=== PATIENT | male | born 1945 | race Caucasian/White ===

== ENCOUNTER 2016-12-22 08:22 | Inpatient (IN) | payer MEDICARE ==
[2016-12-22] VITALS (37 sets, daily range): BP systolic 82–110; BP diastolic 50–65; PULSE 69–107; RESP 0–34; TEMP 97.9–98.8; O2SAT 96–100; Ht 182.9 cm; Wt 68.8 kg
[~2016-12-22] VITALS: Ht 182.9 cm; Wt 68.8 kg
[~2016-12-22 08:22] MED LIST: ASCO-219 PO; FINA5TAB30 PO; HYDR-3989 PO; UBID100C18 PO; VITA-139 PO
--- OUTSIDE RECORDS SUMMARY | 2016-12-22 08:26 | XMS REPORT ---
Author Author Subhash Klein [facility] eClinicalWorks Address Unknown Phone Unavailable Care Team Providers Care Distance Learning Program Coordinator Name Role Phone Subhash Klein CP Unavailable Allergies No Known Allergies Problems No Known Problems Medications No Known Medications Results No Known Results Summary Purpose eClinicalWorks Submission
--- OUTSIDE RECORDS SUMMARY | 2016-12-22 08:26 | XMS REPORT ---
Author Author Subhash Klein [facility] eClinicalWorks Address Unknown Phone Unavailable Care Team Providers Care Stationary Equipment Mechanic Name Role Phone Subhash Klein CP Unavailable Allergies No Known Allergies Problems No Known Problems Medications No Known Medications Results No Known Results Summary Purpose eClinicalWorks Submission
--- OUTSIDE RECORDS SUMMARY | 2016-12-22 08:26 | XMS REPORT ---
Author Author Subhash Klein [facility] eClinicalWorks Address Unknown Phone Unavailable Care Team Providers Care Shuttler Car Name Role Phone Subhash Klein CP Unavailable Allergies No Known Allergies Problems No Known Problems Medications No Known Medications Results No Known Results Summary Purpose eClinicalWorks Submission
--- OUTSIDE RECORDS SUMMARY | 2016-12-22 08:26 | XMS REPORT ---
Author Author Subhash Klein [facility] eClinicalWorks Address Unknown Phone Unavailable Care Team Providers Care Veneer Stapler Name Role Phone Subhash Klein CP Unavailable Allergies No Known Allergies Problems No Known Problems Medications No Known Medications Results No Known Results Summary Purpose eClinicalWorks Submission
--- NOTE | 2016-12-22 08:45 | NUR ---
PROVIDER DR. CHOPRA IN ROOM WITH PT.
--- NOTE | 2016-12-22 08:47 | ERPDOC ---
Departure Disposition Decision Date: Dec 22, 2016 Disposition Decision Time: 12:19 Disposition: 02 TO [facility] Impression Impression Impression: Primary Impression: Urinary tract infection Urinary tract infection type: acute cystitis Hematuria presence: without hematuria Qualified Codes: N30.00 - Acute cystitis without hematuria Additional Impressions: Severe sepsis New onset atrial fibrillation Atrial fibrillation with slow ventricular response Severity: Moderate Condition: Stable Seen By: Physician only Referrals: MANJINDER COMBS MD (Family) Problems/Meds/Labs Reviewed?: Yes Medications reviewed and manag: Yes Follow up care ordered?: Yes Mental Status: Alert, Oriented Critical Care Note Total Time (mins): 38 Critical Care Spent: [id number] care of pt, Reviewing test results, Discuss the case w/staff, Documenting the MR, Discussion w/ family/DPOA During this visit the pt was: Critically Ill, At Risk of Deterioration, At Risk of Comments Patient with severe bradycardia with a rate of 5 bpm, patient was at acute risk of deterioration and Sepsis SIRS Criteria: Acute mental status chg Severe Sepsis Criteria: SBP <90 or MAP <65, Cardiac dysfunction, Lactate >=2.0 mg/dL HPI - Male General Chief Complaint: Male Urogenital Problems Stated Complaint: POSS UTI, DEHYDRATION Time Seen by Provider: 08:46 Source: patient, family Exam Limitations: no limitations HPI - Male Initial Comments Patient is a 71-year-old male presents emergency room for evaluation of possible dehydration, question urinary tract infection. Patient states he gets urinary tract infections quite a lot, his family has a history of getting dehydrated acutely when he has these conditions, last episode of urinary tract infection was 2 years ago. Patient began having frequency and urgency yesterday , this morning patient felt weak, dizzy on standing with some nausea and vomiting no abdominal pain. Patient's had no fevers, still having normal bowel movements no headache or localizing symptoms. Patient brought in by family for evaluation today. Occurred At: home Onset: Gradual Duration: 12-24 hrs Allergies: Coded Allergies: No Known Allergies (Unverified , 12/22/16) Past History Past Medical History Male: BPH, UTI Surgical History Reproductive/: TURP Joint: shoulder Family History Family PMH: FOUND: [place], cancer, diabetes, other Vaccines Hx Influenza Vaccination: No (REFUSES) Hx Pneumococcal Vaccination: No (REFUSES) Social History Smoking Status: Never smoker Substance Use Type: does not use Alcohol Intake: none Review of Systems Constitutional Constitutional: appetite decrease, weakness, DENIES: chills, dizziness, fever Eyes Vision: DENIES: loss of visual santos ENMT Sinuses: DENIES: congestion, rhinorrhea Mouth/Throat: DENIES: scratchy throat, sore throat Cardiovascular Cardiac: DENIES: chest pain, dyspnea on exertion Pulmonary Respiratory: DENIES: cough, dyspnea, sputum, tachypnea GI Upper Abdomen: nausea, vomiting, DENIES: pain Lower Abdomen: DENIES: constipation, diarrhea, pain General: frequency, urgency Musculoskeletal General: DENIES: cramps, pain, weakness Integumentary Skin: DENIES: color change, itching, rash Endocrine Endocrine: DENIES: heat/cold intolerance Hematologic/Lymphatic Hematologic/Lymphatic: DENIES: anemia Physical Exam General General Nourishment: well nourished, well developed, thin General Body Habitus: well groomed Vitals and Pain First Documented Vital Signs Date Time Temp Pulse Resp B/P Pulse Ox O2 Delivery O2 Flow Rate FiO2 12/22/16 08:24 74 108/59 12/22/16 08:24 97.8 14 95 Room Air 12/22/16 10:00 2.00 Weight: Kilograms: Height (feet): 6 Height (inches): 0 Triage Pain Scale: RN VS reviewed by Provider: Yes Eyes (brief) Eyes Brief: found: EOMI ENMT (brief) ENMT Brief: FOUND: mucosa moist, normal dentition, NOT FOUND: nasal erythema, pharnyx erythema, tonsillar deviation Neck (brief) Neck: NOT FOUND: adenopathy, spasm, tenderness Respiratory (brief) Respiratory: FOUND: clear all santos, equal bilaterally, NOT FOUND: rales Cardiovascular (brief) Cardiac: FOUND: regular rate, regular rhythm Abdomen (brief) Abdominal Brief: FOUND: bowel normo active x4, soft, NOT FOUND: distended, tender Lymphatic (brief) Lymphatic Brief: NOT FOUND: adenopathy Musculoskeletal (brief) Musculoskeletal Brief: NOT FOUND: spasm, tenderness Integumentary (brief) Integumentary Brief: FOUND: dry, pink, warm, NOT FOUND: rash Neurologic (brief) Neurological Brief: FOUND: CN w/o gross def to obs, motor-no gross deficits, sensory-no gross deficits Psychiatric (brief) Psychiatric Brief: FOUND: alert, oriented Differential Diagnoses Considering: UTI, Other (gastroenteritis, pneumonia, sepsis, SIRS) Progress Results/Orders Orders Procedure Category Date Status Time Lactate - Lactic Acid LAB 12/22/16 Complete 08:50 Blood Culture DAHLIA 12/22/16 In Process 08:50 Cbc W/Auto LAB 12/22/16 Complete Diff-Reflex Manual 08:50 Cmp - Comprehensive LAB 12/22/16 Complete Metabolic 08:50 Procalcitonin LAB 12/22/16 Complete 08:50 Iv Lock (Ed Only) EDM 12/22/16 Transmitted 08:50 Chest, Pa & Lateral RAD 12/22/16 Resulted 08:50 Ceftriaxone (Rocephin) PHA 12/22/16 Complete 09:00 Normal Saline (Normal PHA 12/22/16 Complete Saline Iv) 09:00 Ondansetron Inj PHA 12/22/16 Complete (Zofran) 09:00 Ceftriaxone I.V. (Er PHA 12/22/16 Complete Use Only) (Rocephin 09:15 EKG EKG 12/22/16 Taken 10:02 Troponin I W LAB 12/22/16 Complete Hemolysis Index 10:05 Normal Saline (Normal PHA 12/22/16 Complete Saline Iv) 11:45 UA, LAB 12/22/16 Complete Dip&Micro(Complete) & 11:40 Urine Culture DAHLIA 12/22/16 In Process 12:09 Lab Results Laboratory Tests Test 12/22/16 09:07 12/22/16 11:40 White Blood Count 6.6T/MM3 Red Blood Count 4.19M/MM3 Hemoglobin 13.5GM/DL Hematocrit 40.9% Mean Corpuscular Volume 97.6UM3 Mean Corpuscular Hemoglobin 32.2UUG Mean Corpuscular Hemoglobin Concent 33.0GM/DL RDW Standard Deviation 47.7FL Platelet Count 152T/MM3 Mean Platelet Volume 10.4UM3 Immature Granulocyte % (Auto) 0.0% Neutrophils (%) (Auto) 81.1% Lymphocytes (%) (Auto) 12.5% Monocytes (%) (Auto) 6.2% Eosinophils (%) (Auto) 0.0% Basophils (%) (Auto) 0.2% Absolute Immature Granulocyte (auto 0.00T/MM3 Absolute Neutrophils (auto) 5.4T/MM3 Absolute Lymphocytes (auto) 0.8T/MM3 Absolute Monocytes (auto) 0.4T/MM3 Absolute Eosinophils (auto) 0.0T/MM3 Absolute Basophils (auto) 0.0T/MM3 Turbidity < 20 Sodium Level 142MEQ/L Potassium Level 4.0MEQ/L Chloride Level 103MEQ/L Carbon Dioxide Level 24MEQ/L Anion Gap 15MEQ/L Blood Urea Nitrogen 12.0MG/DL Creatinine 0.8MG/DL Glomerular Filtration Rate Calc 95 BUN/Creatinine Ratio 15RATIO Glucose Level 137MG/DL Calculated Osmolality 275MOSM/KG Calcium Level 9.2MG/DL Total Bilirubin 1.20MG/DL Icterus Index < 2 Aspartate Amino Transf (AST/SGOT) 30U/L Alanine Aminotransferase (ALT/SGPT) 29U/L Alkaline Phosphatase 60U/L Troponin I < 0.012ng/ml Total Protein 6.9G/DL Albumin 3.6G/DL Globulin 3.3G/DL Albumin/Globulin Ratio 1.1RATIO Plasma Lactate 2.4MMOL/L Procalcitonin < 0.05NG/ML Chemistry Specimen Hemolysis < 15 Urine Collection Type Voided-not cc-midstr Urine Color Yellow Urine Turbidity Clear Urine pH 6.0 Urine Specific [place] >=1.030 Urine Protein 2+ Urine Glucose (UA) Negative Urine Ketones 2+ Urine Blood Trace-intact Urine Nitrite Negative Urine Bilirubin Negative Urine Urobilinogen 0.2EU/DL Urine Leukocyte Esterase Negative Urine RBC 1-3/HPF Urine WBC 1-3/HPF Urine Squamous Epithelial Cells None seen Urine Transitional Epithelial Cells 0-1/HPF Urine Bacteria 4+ Urine Hyaline Casts 0-1/LPF Urine Mucus Present Urine Culture Indicated Cult not indicated Medications Current ED Medications Ceftriaxone Sodium 1 g/Sodium Chloride 100 ml @ 200 mls/hr O ONCE IV Last administered on 12/22/16 09:20; Start 12/22/16 at 09:00; Stop 12/22/16 at 09:13 ; Status DC Sodium Chloride (Normal Saline IV) 1,000 ml @ 999 mls/hr Q1H1M ONCE IV Last administered on 12/22/16 09:18; Start 12/22/16 at 09:00; Stop 12/22/16 at 10:00 ; Status DC Ondansetron HCl 4 mg 4 mg O ONCE IV Last administered on 12/22/16 09:20; Start 12/22/16 at 09:00; Stop 12/22/16 at 09:01; Status DC Ceftriaxone Sodium 1 g/Sodium Chloride 100 ml @ 100 mls/hr O ONCE IV Last administered on 12/22/16 09:15; Start 12/22/16 at 09:15; Stop 12/22/16 at 10:14 ; Status DC Sodium Chloride (Normal Saline IV) 1,000 ml @ 5,000 mls/hr Q12M IV Last administered on 12/22/16 12:17; Start 12/22/16 at 11:45; Stop 12/22/16 at 11:58 ; Status DC Progress Progress While patient was in the emergency room on telemetry patient had episode of severe positive with 8-9 seconds causes of heart. Went into evaluate the patient, states he was having one of his "episodes". Patient was unresponsive at that time, however after approximately 30 seconds patient regained spontaneous normal rhythm at a rate of 60s. Patient became responsive at that time was complaining of some mild nausea. Discussed case with Dr. Diggs, admitted to the CCU, telemetry, continue UTI severe sepsis workup, patient has received fluid resuscitation and antibiotics. We'll order repeat lactate at 5 hours, consult Dr. Aguilar for bradycardic episodes and underlying atrial fibrillation rhythm EKG EKG : Rate: 60-100 Rhythm: atrial fibrillation [place]: normal QRS: normal Intervals: normal ST/T: non-specific changes Interpreted by: signing physician Xray Xray : Xray: CXR PA/Lat Interpretation: Normal, Reviewed Written Report RIRI CHOPRA MD Dec 22, 2016 08:46
[2016-12-22] MEDS ORDERED: NORMAL SALINE 1,000 ML IV ONE (09:00)
[2016-12-22] MEDS ORDERED: CEFTRIAXONE 1 G in NORMAL SALINE 100 ML IV ONE (09:00)
[2016-12-22] MEDS ORDERED: ONDANSETRON 4mg/2ml INJECTION IV ONE (09:00)
[2016-12-22 09:14] LABS: BASOPHILS % (AUTO) 0.2 % (0-2); HCT - HEMATOCRIT 40.9 % (41-53); HGB - HEMOGLOBIN 13.5 GM/DL (13.5-17.5); LYMPHOCYTES # (AUTO) 0.8 T/MM3 (1-4.8); LYMPHOCYTES % (AUTO) 12.5 % (23-45); MEAN CORPUSCULAR HGB 32.2 UUG (26-34); MEAN CORPUSCULAR VOLUME 97.6 UM3 (80-100); MEAN PLATELET VOLUME 10.4 UM3 (9.4-12.4); MONOCYTES # (AUTO) 0.4 T/MM3 (0-0.8); MONOCYTES % (AUTO) 6.2 % (0-9.0); NEUTROPHILS #(AUTO)-ABSOLUTE 5.4 T/MM3 (1.8-7.7); NEUTROPHILS % (AUTO) 81.1 % (33-66); RED BLOOD COUNT 4.19 M/MM3 (4.50-5.90); WBC - WHITE BLOOD COUNT 6.6 T/MM3 (4.5-11.0)
[2016-12-22] MEDS ORDERED: CEFTRIAXONE I.V. (ER USE ONLY) 1 G in NORMAL SALINE 100 ML IV ONE (09:15)
[2016-12-22 09:22] LABS: ALBUMIN 3.6 G/DL (3.5-5.0); ALBUMIN/GLOBULIN RATIO 1.1 RATIO (1.1-2.2); ALKALINE PHOSPHATASE 60 U/L (38-126); ALT (SGPT) 29 U/L (21-72); ANION GAP 15 MEQ/L (5-15); AST (SGOT) 30 U/L (17-59); BUN/CREATININE RATIO 15 RATIO (6-26); CALCIUM 9.2 MG/DL (8.4-10.2); CHLORIDE 103 MEQ/L (98-107); CO2 - CARBON DIOXIDE 24 MEQ/L (22-30); CREATININE 0.8 MG/DL (0.8-1.5); GLOMERULAR FILTRATION RATE 95; GLUCOSE 137 MG/DL (75-110); LACTATE - LACTIC ACID 2.4 MMOL/L (0.6-2.2); SODIUM 142 MEQ/L (134-144); TOTAL PROTEIN 6.9 G/DL (6.3-8.2)
--- NOTE | 2016-12-22 09:55 | NUR ---
[facility] in EDM - 12/22/16 at 1023 by JOYCE ASSESSMENT WENT IN TO START IVL. PT IS PLAYING IN BED. MOM WANTED TO TRY ORAL FLUIDS AGAIN. WILL HOLD IVL
--- NOTE | 2016-12-22 09:57 | NUR ---
MONITOR RATE ALARM WENT OFF. DR CHOPRA AT BEDSIDE. PT IS UNRESPONSIVE. PT HAD 2 9 SEC PAUSES IN AFIB. SLOW HR LASTED 1 MINS. SEE CARDIAC STRIPS.
--- NOTE | 2016-12-22 09:57 | DI ---
INDICATION: ITS.REASON: weakness, episodes of bradycardia sepsis evaluation PROCEDURE: CHEST 2-VIEWS UPRIGHT (PA \T\ LAT) Encounter: Initial COMPARISON: July 02, 2015 FINDINGS: The lungs are clear without evidence of focal abnormal airspace opacity. There is no pleural effusion or pneumothorax. The heart size, mediastinal contours and pulmonary vascularity are within normal limits. There is no significant skeletal abnormality. IMPRESSION: No acute cardiopulmonary disease. .
--- NOTE | 2016-12-22 10:00 | NUR ---
ASSESSMENT PT DENIES CP OR NAUSEA. VS IMPROVED.
--- NOTE | 2016-12-22 10:05 | NUR ---
[facility] in ED - 12/22/16 at 1023 by JOYCE INTAKE PT TOOK 4 OZ FORMULA.
--- NOTE | 2016-12-22 11:00 | NUR ---
ASSESSMENT PT SEEMS MORE ALERT & MORE ENERGY
--- NOTE | 2016-12-22 11:30 | NUR ---
ACTIVITY PT STOOD AT BEDSIDE TO VOID. UNABLE TO AT THIS MOMENT.
[2016-12-22 11:46] LABS: BLOOD, URINE TRACE-INTACT (NEGATIVE); COLOR,URINE YELLOW (YELLOW); LEUKOCYTE ESTERASE ,URINE NEGATIVE (NEGATIVE); NITRITE,URINE NEGATIVE (NEGATIVE); UROBILINOGEN,URINE 0.2 EU/DL (NORMAL)
[2016-12-22] MEDS: NORMAL SALINE 1,000 ML IV SCH ×2 (11:50→12:17)
[2016-12-22 11:57] LABS: BACTERIA,URINE 4+ (NEGATIVE); MUCUS,URINE PRESENT; SQUAMOUS EPITHELIAL CELL,UR NONE SEEN; TRANSITIONAL EPI CELLS,URINE 0-1 /HPF
[2016-12-22 11:58] LABS: HYALINE CASTS, URINE 0-1 /LPF
--- NOTE | 2016-12-22 12:20 | NUR ---
DR CHOPRA IN
[2016-12-22] MEDS ORDERED: PRN ORDERS MC (12:30)
--- NOTE | 2016-12-22 12:44 | NUR ---
REPORT TO GUIDO MOON
[2016-12-22] MEDS: 1/2 NS w/ KCL 20mEq 1,000 ML IV SCH ×2 (13:12→23:00)
--- NOTE | 2016-12-22 13:18 | NUR ---
COMMUNICATION CHECKING ON BED AVAILABILITY. ROOM CLEAN, THEY WILL GET IT ZERO'D AND WE CAN BRING PATIENT NOW.
--- NOTE | 2016-12-22 13:35 | NUR ---
ADMISSION Received care of this patient to CCU 6 from ED. Report was given prior to transfer. Patient alert and oriented without complaints at this time. He states that he feels much better, and notes that he looks much better after treatment in the ED. Monitor shows afib with CVR.
--- NOTE | 2016-12-22 13:35 | NUR ---
DEPART/ADMIT PATIENT TRANSFERRED TO CCU BED 6 WITHOUT INCIDENT. CARES RELEASED TO [facility]. CONDITION STABLE.
--- NOTE | 2016-12-22 15:55 | CONSPD ---
AURE MILLER EDGE ROLLER 12/22/16 1420: Consultation Info Date DATE: 12/22/16 TIME: 14:15 Date of Consultation: Dec 22, 2016 Attending Physician: Layo Dixon DO Reason for Consultation: a fib/ severe bradycardia HPI - Adult Date DATE: 12/22/16 TIME: 14:15 General Date of Admission Date of Admission: Dec 22, 2016 at 12:27 Chief Complaint: Possible UTI, dehydration History of Present Illness Curt is a 71-year-old male whois known to Dr. Simms with a history of CAD, A Fib and hypotension who presented to the ED for evaluation of possible dehydration, question urinary tract infection. He states he gets urinary tract infections frequently and has a history of getting dehydrated acutely when he does, last episode of urinary tract infection was 2 years ago. He began having frequency and urgency yesterday, this morning patient felt weak, dizzy on standing with some nausea and vomiting but no abdominal pain. He has had no fevers, still having normal bowel movements, no headache or localizing symptoms. While in the ED on telemetry he had episode of severe bradycardia with 8-9 seconds pauses of heart. When evaluated by ED Dr during this time, the patient 's states he is having one of his "episodes". He was unresponsive at the time, after approximately 30 seconds he regained spontaneous normal rhythm at a rate of 60s. He became responsive at that time and was complaining of some mild nausea. He was admitted to the CCU, telemetry, continue UTI severe sepsis workup, patient has received fluid resuscitation and antibiotics. Dr. Simms is being consulted for bradycardic episodes and underlying atrial fibrillation rhythm. Past Medical History Past Medical History Male: BPH, UTI Surgical History Reproductive/: TURP Joint: shoulder Current Medications Home Meds Active Scripts Cefdinir (Cefdinir) 300 Mg Capsule, 600 MG PO DAILY for 10 Days, #20 CAP 0 Refills Prov:LAYO DIXON DO 12/23/16 Reported Medications Finasteride (Proscar) 5 Mg Tablet, 1 TAB PO HS 08/18/13 Vitamin E Acetate (E-400) 400 Unit Capsule, 1 TAB PO DAILY 07/24/13 Ascorbic Acid (Vitamin C W/Ita Hips) 1,000 Mg Tablet, 1 TAB PO BID 07/24/13 Ubidecarenone (Co Q-10) 100 Mg Capsule, 1 TAB PO DAILY 07/24/13 Allergies: Coded Allergies: No Known Allergies (Unverified , 12/22/16) Family History FOUND: [place], cancer, diabetes, other Vaccines 2016 REFUSES UNKNOWN Social History Smoking Status: Never smoker Substance Use Type: does not use Alcohol Intake: none Advance Directives: Yes DPOA for Healthcare Only ( and son) Review of Systems Constitutional: REPORTS: chills, dizziness, fever, syncope, weakness ENMT Sinuses: NOT FOUND: rhinorrhea Mouth/Throat: DENIES: sore throat Cardiovascular DENIES: chest pain, dyspnea on exertion, murmur, orthopnea Rhythm/Rate: irregular beat, DENIES: palpitations, tachycardia Vascular: DENIES: pedal edema Pulmonary Respiratory: DENIES: cough, sputum GI Upper Abdomen: nausea, vomiting Lower Abdomen: DENIES: blood in stool, diarrhea General: burning, dysuria, frequency, urgency Integumentary Skin: DENIES: rash, sores Neurological General: syncope, weakness, DENIES: headache, numbness, seizures, vertigo All Other Systems All Other Systems: Reviewed (remainder of 10-point ROS Neg.) Physical Exam General General Nourishment: well nourished, well developed, apparent age Vital Signs Vital Signs Date Time Temp Pulse Resp B/P Pulse Ox O2 Delivery O2 Flow Rate FiO2 12/22/16 13:57 78 12 100 Nasal Cannula 2.00 12/22/16 13:35 97.5 94/55 Height (Feet): 6 Height (Inches): 0.00 Telemetry Rhythm: Sinus Bradycardia ENMT Brief: FOUND: mucosa moist Neck Brief: NOT FOUND: JVD, carotid bruits Respiratory Brief: FOUND: clear all santos, equal bilaterally, NOT FOUND: rales , wheezes Cardiovascular (brief) Cardiac Brief: FOUND: regular rate, NOT FOUND: click, gallop, murmur, pedal edema, regular rhythm Integumentary (brief) Integumentary Brief: FOUND: dry, pink, warm Neurologic RN Documented GCS Eye Opening: (4)Spontaneous Verbal: (5)Oriented Motor: (6)Obeys Commands Total: Psychiatric (brief) FOUND: alert, oriented Laboratory Laboratory Tests Test 12/22/16 09:07 12/22/16 11:40 12/22/16 14:06 White Blood Count 6.6T/MM3 Red Blood Count 4.19M/MM3 Hemoglobin 13.5GM/DL Hematocrit 40.9% Mean Corpuscular Volume 97.6UM3 Mean Corpuscular Hemoglobin 32.2UUG Mean Corpuscular Hemoglobin Concent 33.0GM/DL RDW Standard Deviation 47.7FL Platelet Count 152T/MM3 Mean Platelet Volume 10.4UM3 Immature Granulocyte % (Auto) 0.0% Neutrophils (%) (Auto) 81.1% Lymphocytes (%) (Auto) 12.5% Monocytes (%) (Auto) 6.2% Eosinophils (%) (Auto) 0.0% Basophils (%) (Auto) 0.2% Absolute Immature Granulocyte (auto 0.00T/MM3 Absolute Neutrophils (auto) 5.4T/MM3 Absolute Lymphocytes (auto) 0.8T/MM3 Absolute Monocytes (auto) 0.4T/MM3 Absolute Eosinophils (auto) 0.0T/MM3 Absolute Basophils (auto) 0.0T/MM3 Turbidity < 20 Sodium Level 142MEQ/L Potassium Level 4.0MEQ/L Chloride Level 103MEQ/L Carbon Dioxide Level 24MEQ/L Anion Gap 15MEQ/L Blood Urea Nitrogen 12.0MG/DL Creatinine 0.8MG/DL Glomerular Filtration Rate Calc 95 BUN/Creatinine Ratio 15RATIO Glucose Level 137MG/DL Calculated Osmolality 275MOSM/KG Calcium Level 9.2MG/DL Magnesium Level 2.0MG/DL Total Bilirubin 1.20MG/DL Icterus Index < 2 Aspartate Amino Transf (AST/SGOT) 30U/L Alanine Aminotransferase (ALT/SGPT) 29U/L Alkaline Phosphatase 60U/L Troponin I < 0.012ng/ml Total Protein 6.9G/DL Albumin 3.6G/DL Globulin 3.3G/DL Albumin/Globulin Ratio 1.1RATIO Plasma Lactate 2.4MMOL/L Procalcitonin < 0.05NG/ML Chemistry Specimen Hemolysis < 15 Urine Collection Type Voided-not cc-midstr Urine Color Yellow Urine Turbidity Clear Urine pH 6.0 Urine Specific [place] >=1.030 Urine Protein 2+ Urine Glucose (UA) Negative Urine Ketones 2+ Urine Blood Trace-intact Urine Nitrite Negative Urine Bilirubin Negative Urine Urobilinogen 0.2EU/DL Urine Leukocyte Esterase Negative Urine RBC 1-3/HPF Urine WBC 1-3/HPF Urine Squamous Epithelial Cells None seen Urine Transitional Epithelial Cells 0-1/HPF Urine Bacteria 4+ Urine Hyaline Casts 0-1/LPF Urine Mucus Present Urine Culture Indicated Cult not indicated Radiology DATE OF EXAM: 12/22/16 ORDERING DOCTOR: RIRI CHOPRA MD TYPE OF EXAM: CHEST, PA & LATERAL REASON FOR EXAM: weakness, episodes of bradycardia sepsis evaluation INDICATION: ITS.REASON: weakness, episodes of bradycardia sepsis evaluation PROCEDURE: CHEST 2-VIEWS UPRIGHT (PA \\T\\ LAT) Encounter: Initial COMPARISON: July 02, 2015 FINDINGS: The lungs are clear without evidence of focal abnormal airspace opacity. There is no pleural effusion or pneumothorax. The heart size, mediastinal contours and pulmonary vascularity are within normal limits. There is no significant skeletal abnormality. IMPRESSION: No acute cardiopulmonary disease. Impression/Recommendation Problems: (1) Severe sinus bradycardia Status: Acute Assessment & Plan: Permanent Pacemaker insertion today (2) Severe sepsis Status: Acute Assessment & Plan: per attending (3) Atrial fibrillation with slow ventricular response Status: Acute Assessment & Plan: HR 79, Refuses oral anticoagulation (4) Atherosclerotic heart disease of [place] coronary artery without angina pectoris Status: Chronic Assessment & Plan: Discussed Aspirin and Statin on last visit and patient was reluctant to start (5) Hypotension Status: Chronic Assessment & Plan: Recurrent, continue to monitor Recommendation Permanent Pacemaker insertion today Thank you for allowing us to participate in the care of this patient. we will follow along with you. CATINA SIMMS MD 12/25/16 1341: Past Medical History Current Medications Home Meds Active Scripts Cefdinir (Cefdinir) 300 Mg Capsule, 600 MG PO DAILY for 10 Days, #20 CAP 0 Refills Prov:LAYO DIXON DO 12/23/16 Reported Medications Finasteride (Proscar) 5 Mg Tablet, 1 TAB PO HS 08/18/13 Vitamin E Acetate (E-400) 400 Unit Capsule, 1 TAB PO DAILY 07/24/13 Ascorbic Acid (Vitamin C W/Ita Hips) 1,000 Mg Tablet, 1 TAB PO BID 07/24/13 Ubidecarenone (Co Q-10) 100 Mg Capsule, 1 TAB PO DAILY 07/24/13 Allergies: Coded Allergies: No Known Allergies (Unverified , 12/22/16) Impression/Recommendation Recommendation After examining the patient I agree with the above assessment. I am involved in the formulation of the patient's plan of care. AURE MILLER APRN Dec 22, 2016 14:20 CATINA SIMMS MD Dec 25, 2016 13:41
[2016-12-22] MEDS ORDERED: WATER FOR INJECTION 20 ML ONE (17:07)
[2016-12-22] MEDS ORDERED: FENTANYL 100mcg/2ml INJECTION ONE (17:07)
[2016-12-22] MEDS ORDERED: CEFAZOLIN 1 GRAM INJECTION ONE (17:07)
[2016-12-22] MEDS ORDERED: LIDOCAINE 1% (10mg/ml) 30ml SDV ONE (17:08)
[2016-12-22] MEDS ORDERED: SALINE FLUSH 10ml SYRINGE ONE (17:08)
[2016-12-22] MEDS ORDERED: BACITRACIN INJ. 50,000 UNITS VL ONE (17:08)
[2016-12-22] MEDS ORDERED: MIDAZOLAM 2mg/2ml INJECTION ONE (17:08)
--- NOTE | 2016-12-22 17:35 | HPPDOC ---
HPI - Adult Date DATE: 12/22/16 TIME: 17:19 General Chief Complaint: Possible UTI, dehydration History of Present Illness Patient was seen and examined in the ED. I discussed this case with the ER physician. Reviewed the patient and his is at the bedside. NAMRATA indicates that he first felt bad on Wednesday evening. Wednesday and Wednesday morning he was actually feeling pretty good and had been working around the home. Wednesday evening he began to feel weak and had some chills and rigors. This continued into Wednesday. On Wednesday he states that in the home was warm and dorsal_(but he was freezing. This is unusual for him but calm and when he has a urinary tract infection. His indicates that he has periodic episodes of "passing out". One of these episodes happened while he was on a monitor in the emergency department and was witnessed by the physician as an approximate 8 second episode of asystole. After which time he went back into a sinus rhythm and then progressed to atrial fibrillation. The urine sample taken from the emergency department was positive for 4+ bacteria. His initial lactate was elevated at 2.4 and he was given IV fluid bolus hydration along with Rocephin IV. At that time I also asked the Dr. Aguilar be consulted for possible pacemaker placement. Past Medical History Past Medical History Patient's Medical History: (1) BPH (benign prostatic hyperplasia) (2) Right bundle branch block (3) Urinary tract infection (4) Atherosclerotic heart disease of [place] coronary artery without angina pectoris (5) urinary retention Surgical History Patient's Surgical History: Bilateral hip replacement by Dr. Downing. The right performed in 2001 the left in 2009 Current Medications Home Meds Reported Medications Finasteride (Proscar) 5 Mg Tablet, 1 TAB PO HS 08/18/13 Vitamin E Acetate (E-400) 400 Unit Capsule, 1 TAB PO DAILY 07/24/13 Ascorbic Acid (Vitamin C W/Ita Hips) 1,000 Mg Tablet, 1 TAB PO BID 07/24/13 Ubidecarenone (Co Q-10) 100 Mg Capsule, 1 TAB PO DAILY 07/24/13 Allergies: Coded Allergies: No Known Allergies (Unverified , 12/22/16) Family History Family History: He has 3 brothers and 4 sisters. 2 brothers with hypertension one brother with atrial fibrillation one sister with breast cancer one sister one brother both with gallbladder cancer, one brother with brain tumor, one brother with multiple myeloma, one sister with CVA Social History Smoking Status: Never smoker Does patient use chewing tobac: No Second Hand Exposure: No Substance Use Type: does not use Alcohol Intake: none Marital Status: Sexuality: female partner Housing: house Household Members: spouse Service: No Current Occupational Status: employed (self-employed), retired Advance Directives: Yes DPOA for Healthcare Only ( and son) Review of Systems Constitutional: REPORTS: chills, fatigue, fever, syncope, weakness Cardiovascular DENIES: chest pain, murmur Rhythm/Rate: irregular beat Pulmonary Respiratory: DENIES: cough, dyspnea, sputum, tachypnea GI Upper Abdomen: DENIES: dysphagia, heartburn/indigestion, hematemesis, nausea Lower Abdomen: DENIES: blood in stool, mary[place]-colored stools, diarrhea, melena Musculoskeletal General: DENIES: cramps, joint pain, pain, tenderness Integumentary Skin: DENIES: color change Neurological General: syncope, weakness, DENIES: headache, seizures Psychiatric Psychiatric: DENIES: depression, emotional instability, nervousness Endocrine DENIES: heat/cold intolerance, polyphagia Hematologic/Lymphatic DENIES: anemia, bleeding gums, easy bruising, frequent nosebleeds Allergic/Immunological DENIES: frequent infections, hives, sneezing All Other Systems All Other Systems: Reviewed (remainder of 10-point ROS Neg.) Physical Exam General General Nourishment: well nourished, well developed, apparent age, adult Vital Signs Vital Signs Date Time Temp Pulse Resp B/P Pulse Ox O2 Delivery O2 Flow Rate FiO2 12/22/16 13:57 78 12 100 Nasal Cannula 2.00 12/22/16 13:40 97.9 12/22/16 13:35 94/55 Height (Feet): 6 Height (Inches): 0.00 Telemetry Rhythm: Atrial Fibrillation Comments 8 second bout of asystole Neck Brief: NOT FOUND: JVD, adenopathy, carotid bruits, thyromegaly Respiratory Brief: FOUND: clear all santos, equal bilaterally, NOT FOUND: rales , wheezes Cardiovascular (brief) Cardiac Brief: NOT FOUND: gallop, murmur, regular rate, regular rhythm Abdomen (brief) Abdominal Brief: FOUND: BS normo active x4, soft, NOT FOUND: distended, hepatosplenomegaly, tender (brief) Male Brief: NOT FOUND: mass, tenderness Lymphatic (brief) Lymphatic Brief: NOT FOUND: adenopathy, lymphedema Musculoskeletal (brief) Musculoskeletal Brief: NOT FOUND: deformity, loss of motion, spasm, tenderness Integumentary (brief) Integumentary Brief: FOUND: dry, pink, warm, NOT FOUND: rash Neurologic (brief) Neurological Brief: FOUND: cranial 2-12 intact, motor, sensory Neurologic RN Documented GCS Eye Opening: (4)Spontaneous Verbal: (5)Oriented Motor: (6)Obeys Commands Total: Psychiatric (brief) FOUND: alert, attentive, normal affect, oriented Laboratory Laboratory Tests Test 12/22/16 09:07 12/22/16 11:40 12/22/16 14:06 White Blood Count 6.6T/MM3 Red Blood Count 4.19M/MM3 Hemoglobin 13.5GM/DL Hematocrit 40.9% Mean Corpuscular Volume 97.6UM3 Mean Corpuscular Hemoglobin 32.2UUG Mean Corpuscular Hemoglobin Concent 33.0GM/DL RDW Standard Deviation 47.7FL Platelet Count 152T/MM3 Mean Platelet Volume 10.4UM3 Immature Granulocyte % (Auto) 0.0% Neutrophils (%) (Auto) 81.1% Lymphocytes (%) (Auto) 12.5% Monocytes (%) (Auto) 6.2% Eosinophils (%) (Auto) 0.0% Basophils (%) (Auto) 0.2% Absolute Immature Granulocyte (auto 0.00T/MM3 Absolute Neutrophils (auto) 5.4T/MM3 Absolute Lymphocytes (auto) 0.8T/MM3 Absolute Monocytes (auto) 0.4T/MM3 Absolute Eosinophils (auto) 0.0T/MM3 Absolute Basophils (auto) 0.0T/MM3 Turbidity < 20 Sodium Level 142MEQ/L Potassium Level 4.0MEQ/L Chloride Level 103MEQ/L Carbon Dioxide Level 24MEQ/L Anion Gap 15MEQ/L Blood Urea Nitrogen 12.0MG/DL Creatinine 0.8MG/DL Glomerular Filtration Rate Calc 95 BUN/Creatinine Ratio 15RATIO Glucose Level 137MG/DL Calculated Osmolality 275MOSM/KG Calcium Level 9.2MG/DL Magnesium Level 2.0MG/DL Total Bilirubin 1.20MG/DL Icterus Index < 2 Aspartate Amino Transf (AST/SGOT) 30U/L Alanine Aminotransferase (ALT/SGPT) 29U/L Alkaline Phosphatase 60U/L Troponin I < 0.012ng/ml Total Protein 6.9G/DL Albumin 3.6G/DL Globulin 3.3G/DL Albumin/Globulin Ratio 1.1RATIO Plasma Lactate 2.4MMOL/L 1.5MMOL/L Procalcitonin < 0.05NG/ML Thyroid Stimulating Hormone (TSH) 2.94MIU/L Chemistry Specimen Hemolysis < 15 Urine Collection Type Voided-not cc-midstr Urine Color Yellow Urine Turbidity Clear Urine pH 6.0 Urine Specific [place] >=1.030 Urine Protein 2+ Urine Glucose (UA) Negative Urine Ketones 2+ Urine Blood Trace-intact Urine Nitrite Negative Urine Bilirubin Negative Urine Urobilinogen 0.2EU/DL Urine Leukocyte Esterase Negative Urine RBC 1-3/HPF Urine WBC 1-3/HPF Urine Squamous Epithelial Cells None seen Urine Transitional Epithelial Cells 0-1/HPF Urine Bacteria 4+ Urine Hyaline Casts 0-1/LPF Urine Mucus Present Urine Culture Indicated Cult not indicated Radiology Chest x-ray reviewed Sepsis Diagnostic Criteria General Variables: FOUND Altered Mental Status Hemodynamic Variables: FOUND Arterial Hypotension Tissue Perfusion Variables: FOUND Hyperlactatemia Assessment & Plan Problems: (1) Asystole by electrocardiogram Status: Acute (2) Urinary tract infection Status: Acute Qualifiers: Urinary tract infection type: acute cystitis Hematuria presence: without hematuria Qualified Codes: N30.00 - Acute cystitis without hematuria (3) Severe sepsis Status: Acute (4) New onset atrial fibrillation Status: Acute (5) Atrial fibrillation with slow ventricular response Status: Acute (6) Atherosclerotic heart disease of [place] coronary artery without angina pectoris Status: Chronic (7) BPH (benign prostatic hyperplasia) Status: Chronic Qualifiers: Prostatic enlargement morphology: non-nodular Lower urinary tract symptom presence: symptoms absent Qualified Codes: N40.0 - Benign prostatic hyperplasia without lower urinary tract symptoms Code Status Do Not Resuscitate Hospital Course Summary Disclaimer The hospital course summary below is not to be considered part of the above Progress Note. Hospital Course Summary Patient is admitted to the ICU with cardiology consultation for pacemaker placement. He has urinary tract infection with severe sepsis and has had fluid hydration along with IV Rocephin. LAYO DIXON DO Dec 22, 2016 17:22
--- NOTE | 2016-12-22 17:55 | NUR ---
TO NEUROLOGY TEACHER Patient transfers to chemical laboratory scientist for single chamber pacer insertion at this time per cart accompanied by chemical laboratory scientist staff. Consent has been signed after Dr Aguilar and [employer] rep have spoken with patient regarding the procedure. Nursing has followed up with verbal reinforcement of the teaching, and written information ([place]) regarding atrial fibrillation, pacemaker insertion, and bradycardia. Patient has had no episodes of cardiac pauses since arrival to CCU, has remained in a fib with CVR and marginal blood pressures. Patient does note that his blood pressures do not run very high at baseline, in the low 100's.
[2016-12-22] MEDS ORDERED: CEFAZOLIN 1 G in NORMAL SALINE 100 ML IV SCH (18:15)
[2016-12-22] MEDS ORDERED: MAG-AL + SIM LIQUID 30 ML UDC PO PRN (18:15)
[2016-12-22] MEDS ORDERED: BISACODYL 5 MG E.C. TABLET PO PRN (18:15)
[2016-12-22] MEDS ORDERED: ACETAMINOPHEN 325 MG TABLET PO PRN (18:15)
--- NOTE | 2016-12-22 18:45 | NUR ---
RETURN FROM TUBE COATER Patient returns from outside laborer post single chamber pacer insertion, awake and alert, talkative. States that he is hungry and would like to eat. Orders checked, patient assessed. Sling is in place to left arm and patient has been instructed to limit movement of this arm by outside laborer staff. Strong radial pulse, irregular, remains in a fib. Family is present.
[2016-12-22] MEDS ORDERED: FINASTERIDE 5 MG TABLET PO SCH (22:00)
[2016-12-23] VITALS (22 sets, daily range): BP systolic 80–100; BP diastolic 51–62; PULSE 69–86; RESP 0–19; TEMP 98–98.4; O2SAT 95–99
[2016-12-23] MEDS: CEFAZOLIN 1 G in NORMAL SALINE 100 ML IV SCH ×2 (02:07→10:24)
[2016-12-23 08:43] LABS: HCT - HEMATOCRIT 40.5 % (41-53); HGB - HEMOGLOBIN 13.5 GM/DL (13.5-17.5); MEAN CORPUSCULAR HGB 32.6 UUG (26-34); MEAN CORPUSCULAR HGB CONC(MCHC 33.3 GM/DL (31-37); MEAN CORPUSCULAR VOLUME 97.8 UM3 (80-100); MEAN PLATELET VOLUME 10.6 UM3 (9.4-12.4); RED BLOOD COUNT 4.14 M/MM3 (4.50-5.90); WBC - WHITE BLOOD COUNT 5.4 T/MM3 (4.5-11.0)
[2016-12-23 08:49] LABS: ALBUMIN 3.2 G/DL (3.5-5.0); ANION GAP 6 MEQ/L (5-15); BUN/CREATININE RATIO 14 RATIO (6-26); CALCIUM 8.8 MG/DL (8.4-10.2); CHLORIDE 103 MEQ/L (98-107); CO2 - CARBON DIOXIDE 27 MEQ/L (22-30); CREATININE 0.7 MG/DL (0.8-1.5); GLOMERULAR FILTRATION RATE 111; GLUCOSE 98 MG/DL (75-110); MAGNESIUM 1.9 MG/DL (1.6-2.3); POTASSIUM 4.9 MEQ/L (3.6-5); SODIUM 136 MEQ/L (134-144)
--- NOTE | 2016-12-23 08:49 | DI ---
Indication: ITS.REASON: Post pacemaker PROCEDURE: CHEST 1 VIEW: Encounter: Initial Comparison: December 22, 2016 Findings: Left pacemaker again seen in stable position. Lungs are stable and grossly clear. No visible pneumothorax. Heart size and mediastinal contours are unchanged. Pulmonary vascularity is normal. Impression: No pneumothorax. .
--- NOTE | 2016-12-23 08:58 | DI ---
INDICATION: ITS.REASON: PPM PROCEDURE: CHEST 2-VIEWS UPRIGHT (PA \T\ LAT) Encounter: Initial COMPARISON: December 22, 2016 FINDINGS: Left single lead cardiac pacemaker appears stable in position. Multiple overlying monitoring leads. Lungs are stable and grossly clear. No visible pneumothorax. Possible trace effusions. Heart size and mediastinal contours are within normal limits. Pulmonary vascularity is unchanged. Suture anchors in the left humeral head. Impression: No pneumothorax. .
[2016-12-23 08:59] LABS: BAND NEUTROPHILS # 0.1 T/MM3; BASOPHILS # (MANUAL) 0.1 T/MM3 (0-0.2); LYMPHOCYTES # (MANUAL) 0.8 T/MM3 (1-4.8); MONOCYTES # (MANUAL) 0.5 T/MM3 (0-0.8); NEUTROPHILS #(MANUAL)-ABSOLUTE 3.9 T/MM3 (1.8-7.7); TOTAL CELLS COUNTED 100 %
[2016-12-23] MEDS ORDERED: MINOCYCLINE 100 MG CAPSULE PO SCH (09:00)
--- NOTE | 2016-12-23 10:00 | NUR ---
ACTIVITY/STATUS HAS BEEN UP ET ABOUT IN ROOM WITHOUT C/O VERTIGO, LIGHTHEADEDNESS OR DISCOMFORT. DRESSING TO LEFT SHOULDER DRY AND INTACT.
[2016-12-23] MEDS: 1/2 NS w/ KCL 20mEq 1,000 ML IV SCH (12:02)
[2016-12-23] MEDS ORDERED: CEFD300C3 PO (13:24)
--- NOTE | 2016-12-23 13:28 | DSPDOC ---
Discharge Diagnoses Discharge Diagnoses (1) Asystole by electrocardiogram Comments: Pacemaker placed by Dr. Aguilar (2) Urinary tract infection Comments: Culture and sensitivity pending (3) Severe sepsis (4) New onset atrial fibrillation (5) Atrial fibrillation with slow ventricular response (6) Atherosclerotic heart disease of [place] coronary artery without angina pectoris (7) BPH (benign prostatic hyperplasia) Hospital Course Patient is admitted to the ICU with cardiology consultation for pacemaker placement. He has urinary tract infection with severe sepsis and has had fluid hydration along with IV Rocephin. Pacemaker placed by Dr. Aguilar. Sepsis resolved with IV fluid hydration as well as IV antibiotics. I will start him on Ceftin ear twice a day for 10 days and have him follow-up both with myself and Dr. Aguilar in 2 weeks Home Meds Active Scripts Cefdinir (Cefdinir) 300 Mg Capsule, 600 MG PO DAILY for 10 Days, #20 CAP 0 Refills Prov:LAYO DIXON DO 12/23/16 Reported Medications Finasteride (Proscar) 5 Mg Tablet, 1 TAB PO HS 08/18/13 Vitamin E Acetate (E-400) 400 Unit Capsule, 1 TAB PO DAILY 07/24/13 Ascorbic Acid (Vitamin C W/Ita Hips) 1,000 Mg Tablet, 1 TAB PO BID 07/24/13 Ubidecarenone (Co Q-10) 100 Mg Capsule, 1 TAB PO DAILY 07/24/13 Discharge Disposition Discharge to home Copies To 1: LAYO DIXON DO Copies To 2: CATINA AGUILAR MD Follow up Condition at time of discharge: Good Follow up With [facility] Medicine and Dr. Aguilar in 2 weeks LAYO DIXON DO Dec 23, 2016 13:28
--- NOTE | 2016-12-23 14:05 | PNPDOC ---
AURE MILLER LACE MACHINE OPERATOR 12/23/16 1402: Subjective Date DATE: 12/23/16 TIME: 13:58 Subjective Curt is in his bed in CCU this morning, he denies chest pain, palpitations or dyspnea. Objective Vital Signs Vital signs Vital Signs 12/23/16 12/23/16 12/23/16 12/23/16 02:00 03:00 04:00 05:00 Pulse 69 74 69 70 Resp 10 13 0 10 B/P 91/55 90/56 89/59 87/55 Pulse Ox 97 97 99 97 O2 Delivery Room Air Room Air Room Air Room Air 12/23/16 12/23/16 12/23/16 12/23/16 05:27 06:00 06:30 07:15 Pulse 75 79 72 79 Resp 12 13 12 9 B/P 89/53 93/58 96/59 Pulse Ox 96 97 97 O2 Delivery Room Air Room Air Room Air 12/23/16 12/23/16 12/23/16 12/23/16 07:46 08:00 08:00 09:00 Temp 98.4 Pulse 70 73 77 Resp 18 13 14 B/P 93/54 94/59 Pulse Ox 96 95 O2 Delivery Room Air Room Air 12/23/16 12/23/16 12/23/16 10:00 11:00 12:00 Pulse 74 80 86 Resp 14 11 17 B/P 91/57 100/62 Pulse Ox 96 96 O2 Delivery Room Air Room Air Telemetry Rhythm: Atrial Fibrillation Height (Feet): 6 Height (Inches): 0.00 Weight (Kilograms): 68.800 General Alert, Orientated x 3, Cooperative ENMT (Brief) mucosa moist Neck (Brief) NOT FOUND: JVD, carotid bruits Respiratory (Brief) clear all santos, equal bilaterally, NOT FOUND: rales, wheezes Cardiovascular (Brief) regular rate, NOT FOUND: murmur, pedal edema, regular rhythm Comments paced at times Abdomen (Brief) BS normo active x4, soft, NOT FOUND: tender Integumentary (Brief) dry, pink, warm Psychiatric (Brief) alert, attentive, oriented Laboratory Laboratory Laboratory Tests Test 12/22/16 09:07 12/22/16 11:40 12/22/16 14:06 12/23/16 08:31 White Blood Count 6.6T/MM3 5.4T/MM3 Red Blood Count 4.19M/MM3 4.14M/MM3 Hemoglobin 13.5GM/DL 13.5GM/DL Hematocrit 40.9% 40.5% Mean Corpuscular Volume 97.6UM3 97.8UM3 Mean Corpuscular Hemoglobin 32.2UUG 32.6UUG Mean Corpuscular Hemoglobin Concent 33.0GM/DL 33.3GM/DL RDW Standard Deviation 47.7FL 47.9FL Platelet Count 152T/MM3 151T/MM3 Mean Platelet Volume 10.4UM3 10.6UM3 Immature Granulocyte % (Auto) 0.0% Neutrophils (%) (Auto) 81.1% Lymphocytes (%) (Auto) 12.5% Monocytes (%) (Auto) 6.2% Eosinophils (%) (Auto) 0.0% Basophils (%) (Auto) 0.2% Absolute Immature Granulocyte (auto 0.00T/MM3 Absolute Neutrophils (auto) 5.4T/MM3 Absolute Lymphocytes (auto) 0.8T/MM3 Absolute Monocytes (auto) 0.4T/MM3 Absolute Eosinophils (auto) 0.0T/MM3 Absolute Basophils (auto) 0.0T/MM3 Turbidity < 20 < 20 Sodium Level 142MEQ/L 136MEQ/L Potassium Level 4.0MEQ/L 4.9MEQ/L Chloride Level 103MEQ/L 103MEQ/L Carbon Dioxide Level 24MEQ/L 27MEQ/L Anion Gap 15MEQ/L 6MEQ/L Blood Urea Nitrogen 12.0MG/DL 10.0MG/DL Creatinine 0.8MG/DL 0.7MG/DL Glomerular Filtration Rate Calc 95 111 BUN/Creatinine Ratio 15RATIO 14RATIO Glucose Level 137MG/DL 98MG/DL Calculated Osmolality 275MOSM/KG 261MOSM/KG Calcium Level 9.2MG/DL 8.8MG/DL Magnesium Level 2.0MG/DL 1.9MG/DL Total Bilirubin 1.20MG/DL Icterus Index < 2 < 2 Aspartate Amino Transf (AST/SGOT) 30U/L Alanine Aminotransferase (ALT/SGPT) 29U/L Alkaline Phosphatase 60U/L Troponin I < 0.012ng/ml Total Protein 6.9G/DL Albumin 3.6G/DL 3.2G/DL Globulin 3.3G/DL Albumin/Globulin Ratio 1.1RATIO Plasma Lactate 2.4MMOL/L 1.5MMOL/L Procalcitonin < 0.05NG/ML Thyroid Stimulating Hormone (TSH) 2.94MIU/L Chemistry Specimen Hemolysis < 15 < 15 Urine Collection Type Voided-not cc-midstr Urine Color Yellow Urine Turbidity Clear Urine pH 6.0 Urine Specific [place] >=1.030 Urine Protein 2+ Urine Glucose (UA) Negative Urine Ketones 2+ Urine Blood Trace-intact Urine Nitrite Negative Urine Bilirubin Negative Urine Urobilinogen 0.2EU/DL Urine Leukocyte Esterase Negative Urine RBC 1-3/HPF Urine WBC 1-3/HPF Urine Squamous Epithelial Cells None seen Urine Transitional Epithelial Cells 0-1/HPF Urine Bacteria 4+ Urine Hyaline Casts 0-1/LPF Urine Mucus Present Urine Culture Indicated Cult not indicated Neutrophils % (Manual) 73.0% Band Neutrophils % 2.0% Lymphocytes % (Manual) 15.0% Monocytes % (Manual) 9.0% Basophils % (Manual) 1.0% Absolute Neutrophils (Manual) 3.9T/MM3 Band Neutrophils # 0.1T/MM3 Lymphocytes # (Manual) 0.8T/MM3 Monocytes # (Manual) 0.5T/MM3 Basophils # (Manual) 0.1T/MM3 Red Cell Morphology Comment Normal Phosphorus Level 3.0MG/DL Laboratory Tests 12/23/16 08:31 Laboratory Tests 12/23/16 08:31 EKG irregular, paced rhythm Medications Current Medications Ceftriaxone Sodium/Sodium Chloride (Rocephin/NS) 100 ml @ 200 mls/hr O ONCE IV Last administered on 12/22/16 09:20; Start 12/22/16 at 09:00; Stop at 09:13; Status DC Ondansetron HCl 4 mg 4 mg O ONCE IV Last administered on 12/22/16 09:20; Start 12/22/16 at 09:00; Stop 12/22/16 at 09:01; Status DC Ceftriaxone Sodium 1 g/Sodium Chloride 100 ml @ 100 mls/hr O ONCE IV Last administered on 12/22/16 09:15; Start 12/22/16 at 09:15; Stop 12/22/16 at 10:14 ; Status DC Sodium Chloride (Normal Saline IV) 1,000 ml @ 5,000 mls/hr Q12M IV Last administered on 12/22/16 12:17; Start 12/22/16 at 11:45; Stop 12/22/16 at 11:58 ; Status DC Miscellaneous Medication PRN PRN MC ; Start 12/22/16 at 12:30 Potassium Chloride/Sodium Chloride (1/2 NS w/ KCL 20mEq) 1,000 ml @ 100 mls/hr Q10H IV Last administered on 12/23/16 12:02; Start 12/22/16 at 12:30 Cefazolin Sodium 1 g 1 g STK-MED ONCE .ROUTE ; Start 12/22/16 at 17:07; Stop at 17:08; Status DC Sterile Water (Sterile Water) 20 ml @ As Directed STK-MED ONCE .ROUTE ; Start at 17:07; Stop 12/22/16 at 17:08; Status DC Fentanyl (Fentanyl) 100 mcg STK-MED ONCE .ROUTE ; Start 12/22/16 at 17:07; Stop 12/22/16 at 17:08; Status DC Midazolam HCl (Versed) 2 mg STK-MED ONCE .ROUTE ; Start 12/22/16 at 17:08; Stop 12/22/16 at 17:09; Status DC Sodium Chloride (Iv Flush) 10 ml STK-MED ONCE .ROUTE ; Start 12/22/16 at 17:08; Stop 12/22/16 at 17:09; Status DC Lidocaine HCl (Xylocaine 1%) 300 mg STK-MED ONCE .ROUTE ; Start 12/22/16 at 17: 08; Stop 12/22/16 at 17:09; Status DC Bacitracin (Bacitracin) 50,000 unit STK-MED ONCE .ROUTE ; Start 12/22/16 at 17: 08; Stop 12/22/16 at 17:09; Status DC Al Hydroxide/Mg Hydroxide (Maalox) 30 ml Q3H PRN PO INDIGESTION; Start at 18:15 Acetaminophen (Tylenol Regular Strength) 650 mg Q4H PRN PO PAIN; Start at 18:15 Minocycline HCl (Minocin) 100 mg BID PO Last administered on 12/23/16 08:43; Start 12/23/16 at 09:00; Stop 12/30/16 at 08:59 Bisacodyl (Dulcolax) prn DAILY PRN PO ; Start 12/22/16 at 18:15 Finasteride 5 mg 5 mg HS PO Last administered on 12/22/16 21:36; Start at 22:00 Cefazolin Sodium/ Sodium Chloride (Kefzol/NS) 100 ml @ 200 mls/hr Q8H IV Last administered on 12/23/16 10:24; Start 12/23/16 at 02:00; Stop 12/23/16 at 10:15 ; Status DC Microbiology Microbiology Microbiology Date/Time Source Procedure Growth Status 12/22/16 09:07 Peripheral/Iv Start Blood Culture - Preliminary NO GROWTH AFTER 24 HOURS Resulted 12/22/16 09:07 Peripheral/Iv Start Blood Culture - Preliminary NO GROWTH AFTER 24 HOURS Resulted 12/22/16 11:40 Urine, Straight Cath Urine Culture - Preliminary CULTURE INITIATED - RESULTS PENDING Resulted Radiology DATE OF EXAM: 12/23/16 ORDERING DOCTOR: AURE MILLER APRN TYPE OF EXAM: CHEST, PA & LATERAL REASON FOR EXAM: PPM INDICATION: ITS.REASON: PPM PROCEDURE: CHEST 2-VIEWS UPRIGHT (PA \T\ LAT) Encounter: Initial COMPARISON: December 22, 2016 FINDINGS: Left single lead cardiac pacemaker appears stable in position. Multiple overlying monitoring leads. Lungs are stable and grossly clear. No visible pneumothorax. Possible trace effusions. Heart size and mediastinal contours are within normal limits. Pulmonary vascularity is unchanged. Suture anchors in the left humeral head. Impression: No pneumothorax. Sepsis Diagnostic Criteria Severe Sepsis SBP <90 or MAP <65, Cardiac dysfunction, Lactate >=2.0 mg/dL Assessment & Plan Problems: (1) Severe sinus bradycardia Status: Acute Assessment & Plan: Permanent Pacemaker insertion today (2) Severe sepsis Status: Acute Assessment & Plan: per attending (3) Atrial fibrillation with slow ventricular response Status: Acute Assessment & Plan: HR 79, Refuses oral anticoagulation (4) Atherosclerotic heart disease of [place] coronary artery without angina pectoris Status: Chronic Assessment & Plan: Discussed Aspirin and Statin on last visit and patient was reluctant to start (5) Hypotension Status: Chronic Assessment & Plan: Recurrent, continue to monitor Plan/Intensity of Service S/P Single chamber permanent pacemaker insertion. Doing well. Okay to discharge from Cardiology Standpoint. Thank you for allowing us to participate in the care of this patient. CATINA SIMMS MD 12/25/16 1342: Assessment & Plan Plan/Intensity of Service After examining the patient I agree with the above assessment. I am involved in the formulation of the patient's plan of care. AURE MILLER LACE MACHINE OPERATOR Dec 23, 2016 14:02 CATINA SIMMS MD Dec 25, 2016 13:42
--- NOTE | 2016-12-23 14:09 | NUR ---
DENY CM VISITED PT AND SPOUSE. CM EXPLAINED ROLE AND PROVIDED CONTACT INFORMATION. PT PLANS TO RETURN HOME AT TIME OF D/C FROM [facility]. PT DENIES NEEDS. PT IS AWARE TO CONTACT CM IF NEEDS ARISE.
--- NOTE | 2016-12-23 14:30 | NUR ---
DISMISSAL HOME INSTRUCTIONS GIVEN AND UNDERSTOOD RE PACEMAKER CARE, DISMISSAL MEDICATIONS. CONDITION STABLE WITH GOOD PACEMAKER CAPTURE. PACER REP HERE THIS AM WITH GOOD SENSING AND CAPTURE REPORTED. DISMISSED PER [facility] ACCOMP BY Eddy PELAEZ LPN. BEHIND FILM WASHER'S WHEEL OF CAR.
--- NOTE | 2016-12-24 15:58 | NUR ---
CM CM LVM
== END 2016-12-23 14:30 | disposition home or self-care (01) | DRG 871 ==
LOC: ED 08:22 → EDHOLD 12:27 → CCU 12:27
PROVIDERS: ADMIT Internal Medicine; ATTEND Internal Medicine
PROC: 0JH604Z Insertion of Pacemaker, Single Chamber into Chest Subcutaneous Tissue and Fascia, Open Approach (ICD-10-PCS; principal; 2016-12-22)
PROC: 02HK3JZ Insertion of Pacemaker Lead into Right Ventricle, Percutaneous Approach (ICD-10-PCS; 2016-12-22)
DX: A41.9 Sepsis, unspecified organism (principal); I46.9 Cardiac arrest, cause unspecified; N30.00 Acute cystitis without hematuria; R65.20 Severe sepsis without septic shock; I49.5 Sick sinus syndrome; I45.10 Unspecified right bundle-branch block; I48.91 Unspecified atrial fibrillation; I25.10 Atherosclerotic heart disease of native coronary artery without angina pectoris; Z66 Do not resuscitate; N40.0 Benign prostatic hyperplasia without lower urinary tract symptoms; R33.9 Retention of urine, unspecified
CPT/HCPCS: 36415; 51701; 80053; 80069; 81001; 83605; 83735; 84145; 84443; 84484; 85007; 85025; 85027; 87040; 87086; 93005; 96361; 96365; 96375